=== PATIENT | male | born 2000 | race Two or more races ===

== ENCOUNTER → 2024-10-13 | Outpatient (REF) | payer OTHER ==
[2024-10-13 15:35] LABS: BASO % 0.3 % (0.0-1.0); EOS # 0.1 10^3/uL (0.0-0.5); EOS % 0.9 % (0.0-3.0); HEMATOCRIT 45.3 % (42.0-52.0); HEMOGLOBIN 15.1 g/dl (13.5-17.5); LYMPH # 1.7 10^3/uL (1.5-5.0); MEAN CORPUSCULAR HEMOGLOBIN 27.4 pg (27.0-33.0); MEAN CORPUSCULAR HGB CONC 33.3 g/dl (32.0-36.5); MEAN CORPUSCULAR VOLUME 82.2 fl (80.0-96.0); MONO % 11.5 % (2.0-8.0); NEUTROPHILS # 6.1 10^3/uL (1.5-8.5); NEUTROPHILS % 67.9 % (36.0-66.0); PLATELET COUNT, AUTOMATED 328 10^3/uL (150-450); RED BLOOD COUNT 5.51 10^6/uL (4.30-6.10); WHITE BLOOD COUNT 9.1 10^3/uL (4.0-10.0)
[2024-10-13 15:51] LABS: C REACTIVE PROTEIN QUANTITATIV 1.61 MG/DL (<1.0)
[2024-10-13 15:52] LABS: BLOOD UREA NITROGEN 12 MG/DL (9-23); CALCIUM LEVEL 8.9 MG/DL (8.5-10.1); CARBON DIOXIDE LEVEL 29 MMOL/L (20-31); CHLORIDE LEVEL 103 MMOL/L (98-107); CREATININE FOR GFR 0.74 MG/DL (0.70-1.30); GLOMERULAR FILTRATION RATE > 60.0 (>60); GLUCOSE, FASTING 83 MG/DL (60-100); POTASSIUM SERUM 4.4 MMOL/L (3.5-5.1); SODIUM LEVEL 141 MMOL/L (136-145)
== END ==
LOC: M SFHCCAPE 09:19
PROVIDERS: ATTEND Physician Assistant Medical
DX: K61.0 Anal abscess (principal)

== ENCOUNTER 2024-10-30 10:18 | Day surgery (SDC) | payer OTHER ==
[~2024-10-30] VITALS: Ht 177.8 cm; Wt 78.2 kg
[2024-10-30] MEDS ORDERED: fentaNYL 100 MCG/2 ML INJECTION As Ordered ONE (10:52)
[2024-10-30] MEDS ORDERED: ACETAMINOPHEN 1000MG/100ML IV BAG As Ordered ONE (10:52)
[2024-10-30] MEDS ORDERED: LIDOCAINE 2% 100MG/5ML SDV (FOR ANES.) As Ordered ONE (10:52)
[2024-10-30] MEDS ORDERED: ONDANSETRON 4MG 2ML VIAL As Ordered ONE (10:52)
[2024-10-30] MEDS ORDERED: propofoL 200 MG/20 ML VIAL As Ordered ONE (10:52)
[2024-10-30] MEDS ORDERED: MIDAZOLAM INJ 2MG/2ML VIAL As Ordered ONE (10:52)
[2024-10-30] MEDS: LIDOCAINE W/EPINEPHRINE 1% 20ML VIAL As Ordered ONE (11:12)
[2024-10-30] MEDS: CelecoXIB 400 MG CAP PO ONE (11:22)
[2024-10-30] MEDS: LR 1,000 ML IV SCH (11:23)
[2024-10-30] MEDS: metroNIDAZOLE 500 MG in IV 1 EA IV ONE (11:23)
[2024-10-30] MEDS ORDERED: ROCURONIUM BROMIDE 50MG/5ML VIAL As Ordered ONE (11:45)
[2024-10-30] MEDS ORDERED: SUGAMMADEX SODIUM 500 MG/5 ML VIAL (BRIDION) As Ordered ONE (11:45)
[2024-10-30] MEDS: ceFAZolin SOD 2 GM in IV 1 EA IV ONE (12:00)
[2024-10-30] MEDS: BUPivacaine LIPOSOME/PF 266MG 20ML VIAL (13.3MG/ML)(EXPAREL) As Ordered ONE (12:55)
[2024-10-30] MEDS ORDERED: KETOROLAC 60MG 2ML VIAL As Ordered ONE (12:57)
[2024-10-30] MEDS ORDERED: fentaNYL 100 MCG/2 ML INJECTION IV PRN (13:15)
[2024-10-30] MEDS ORDERED: oxyCODONE 5MG TAB PO PRN (13:15)
[2024-10-30] MEDS: ONDANSETRON 4MG 2ML VIAL IV PRN (13:25)
[2024-10-30] MEDS: METOCLOPRAMIDE INJ 10MG/2ML VIAL IV PRN (13:48)
[2024-10-30 15:26] VITALS: BP 119/62; TEMP 97.6; O2SAT 100
== END 2024-10-30 16:36 | disposition home or self-care (01) ==
LOC: M SDC 10:18
PROVIDERS: ATTEND Surgery
DX: K60.30 Anal fistula, unspecified (principal); K64.0 First degree hemorrhoids; Z91.011 Allergy to milk products
CPT/HCPCS: 46270; J0131; J0665; J0666; J0690; J1836; J1885; J2250; J2405; J2765; J3010

== ENCOUNTER → 2025-01-26 | Outpatient (CLI) | payer OTHER ==
[~2025-01-26] MED LIST: PROHANCE 279.3MG/ML 15ML VIAL ONE
== END ==
LOC: M PLAIMG 08:34
PROVIDERS: ATTEND Surgery
DX: K60.30 Anal fistula, unspecified (principal)